=== PATIENT | male | born 1950 | race Two or more races ===

== ENCOUNTER → 2017-04-16 | Outpatient (CLI) | payer OTHER ==
[~2017-04-16] MED LIST: AMLO10TA2 PO; FINA5TAB4 PO; TAMS-11 PO
[2017-04-16 10:15] LABS: MICROSCOPIC INDICATED
[2017-04-16 10:24] LABS: ALANINE AMINOTRANSFERASE 15 U/L (12-78); ALBUMIN 3.9 g/dL (3.4-5.0); ANION GAP 6 mmol/L (5-15); CALCIUM 8.8 mg/dL (8.5-10.1); CHLORIDE 105 mmol/L (98-107); CREATININE 1.01 mg/dL (0.7-1.3)
[2017-04-16 10:26] LABS: ALKALINE PHOSPHATASE 95 U/L (45-117); BILIRUBIN,TOTAL 0.8 mg/dL (0.2-1.0); TOTAL PROTEIN 8.2 g/dL (6.4-8.2)
== END | disposition home or self-care (01) ==
LOC: STAR 08:52
PROVIDERS: ATTEND Urology
DX: Z01.818 Encounter for other preprocedural examination (principal); N40.0 Benign prostatic hyperplasia without lower urinary tract symptoms
CPT/HCPCS: 36415; 80053; 81001; 87086; 93005

== ENCOUNTER 2017-04-23 08:32 | Observation (INO) | payer OTHER ==
[~2017-04-23] VITALS: Ht 167.6 cm; Wt 89.5 kg
[2017-04-23] MEDS ORDERED: LIDOCAINE-MPF 1%, 2ML ONE (09:27)
[2017-04-23] MEDS ORDERED: LIDOCAINE-MPF 1%, 2ML INFIL ONE (09:30)
[2017-04-23] MEDS ORDERED: LACTATED RINGERS 1,000 ML IV SCH (09:30)
[2017-04-23] MEDS ORDERED: PNEUMOCOCCAL 23 VACCINE IM-VACC ONE (10:00)
[2017-04-23] MEDS ORDERED: DEXAMETHASONE 4 MG/ML, 1ML ONE (12:08)
[2017-04-23] MEDS ORDERED: CEFAZOLIN 1,000 MG ONE (12:08)
[2017-04-23] MEDS ORDERED: PROPOFOL 10 MG/ML, 20ML ONE (12:08)
[2017-04-23] MEDS ORDERED: METOCLOPRAMIDE 5 MG/ML, 2ML ONE (12:08)
[2017-04-23] MEDS ORDERED: ONDANSETRON 2MG/ML, 2ML ONE (12:08)
[2017-04-23] MEDS ORDERED: GENTAMICIN 80 MG/2 ML ONE ×2 (12:22→12:29)
[2017-04-23] MEDS ORDERED: HYDROmorphone 1 MG/ML, 1ML IV PRN (13:30)
[2017-04-23] MEDS ORDERED: MEPERIDINE/PF 25MG/0.5ML IVPush PRN (13:30)
[2017-04-23] MEDS ORDERED: LABETALOL 5MG/ML, 20ML IV PRN (13:30)
[2017-04-23] MEDS ORDERED: MIDAZOLAM 1 MG/ML, 2ML IV PRN (13:30)
[2017-04-23] MEDS ORDERED: OXYcodone 5 MG/5 ML ORAL.SOL UDC PO PRN (13:30)
[2017-04-23] MEDS ORDERED: ONDANSETRON 2MG/ML, 2ML IVPush PRN (13:30)
[2017-04-23] MEDS ORDERED: EPHEDRINE 50 MG/ML, 1ML IVPush PRN (13:30)
[2017-04-23] MEDS ORDERED: METOCLOPRAMIDE 5 MG/ML, 2ML IV PRN (13:30)
[2017-04-23] MEDS ORDERED: hydrALAzine 20 MG/ML, 1ML IV PRN (13:30)
[2017-04-23] MEDS ORDERED: ALBUTEROL SULFATE 2.5 MG/3 ML NPPB PRN (13:30)
[2017-04-23] MEDS ORDERED: OPIUM/BELLADONNA SUPP.RECT 16.2-30 MG PR STA (13:48)
[2017-04-23] MEDS ORDERED: FENTANYL PF 100 MCG/2ML ONE (13:51)
[2017-04-23] MEDS ORDERED: OPIUM/BELLADONNA SUPP.RECT 16.2-30 MG ONE (13:51)
[2017-04-23] MEDS: FENTANYL PF 100 MCG/2ML IV PRN ×2 (13:54→14:13)
[2017-04-23] MEDS ORDERED: ACETAMINOPHEN 325 MG TABLET PO PRN (15:30)
[2017-04-23] MEDS ORDERED: GENTAMICIN 80 MG in SODIUM CHLORIDE 0.9% 48 ML IV SCH (15:30)
[2017-04-23] MEDS ORDERED: OPIUM/BELLADONNA SUPP.RECT 16.2-30 MG PR PRN (15:30)
[2017-04-23] MEDS ORDERED: ONDANSETRON 2MG/ML, 2ML IV PRN (15:30)
[2017-04-23] MEDS: HYDROcodone/APAP 5/325 TABLET PO PRN (15:46)
[2017-04-23] MEDS: D5%-0.9% NACL+KCL 20MEQ 1,000 ML IV SCH (17:12)
[2017-04-23 19:54] VITALS: BP 103/65
[2017-04-23] MEDS: CEFAZOLIN PMX 1GM/50ML 50 ML IV SCH (20:29)
[2017-04-23] MEDS: GENTAMICIN 80 MG in SODIUM CHLORIDE 0.9% 48 ML IV SCH (21:33)
[2017-04-23 23:45] VITALS: BP 88/54
[2017-04-24] MEDS: CEFAZOLIN PMX 1GM/50ML 50 ML IV SCH ×2 (03:28→12:18)
[2017-04-24] MEDS: GENTAMICIN 80 MG in SODIUM CHLORIDE 0.9% 48 ML IV SCH ×2 (04:00→13:31)
[2017-04-24 04:46] VITALS: BP 90/55
[2017-04-24 06:00] LABS: CHLORIDE 108 mmol/L (98-107)
[2017-04-24 06:07] LABS: ANION GAP 6 mmol/L (5-15); CALCIUM 8.4 mg/dL (8.5-10.1); CREATININE 0.99 mg/dL (0.7-1.3)
[2017-04-24] MEDS: HYDROcodone/APAP 5/325 TABLET PO PRN (08:41)
[2017-04-24] MEDS ORDERED: FINASTERIDE 5 MG TABLET PO SCH (09:00)
[2017-04-24] MEDS ORDERED: AMLODIPINE 5 MG TABLET PO SCH (09:00)
[2017-04-24] MEDS: D5%-0.9% NACL+KCL 20MEQ 1,000 ML IV SCH (09:30)
[2017-04-24 09:41] VITALS: BP 116/76
[2017-04-24] MEDS ORDERED: SULF1TAB24 PO (15:04)
== END 2017-04-24 15:30 | disposition home or self-care (01) ==
LOC: OUT 08:32 → 4NOR 14:59 → OUT 23:17 → 4NOR 23:33
PROVIDERS: ADMIT Urology; ATTEND Urology
DX: N40.1 Benign prostatic hyperplasia with lower urinary tract symptoms (principal); I10 Essential (primary) hypertension; N32.89 Other specified disorders of bladder; R33.8 Other retention of urine
CPT/HCPCS: 36415; 52630; 80048; 85014; 85018; 88305; 96365; 96367; 96375; 96376; G0378; J0690; J1100; J1580; J2250; J2405; J2704; J2765; J3010; J3480; J3490; J7120